=== PATIENT | female | born 1970 | race Caucasian/White ===

== ENCOUNTER 2024-08-31 18:08 | Emergency (ER) | payer OTHER, SELFPAY ==
[2024-08-31 18:21] VITALS: BP 138/88; PULSE 76; RESP 16; TEMP 36.5; O2SAT 97; BMI 27.5
--- NOTE | 2024-08-31 19:11 | CRLHL7_ITS ---
For Patients: As a result of the Century Cures Act, medical imaging exams and procedure reports are released immediately into your electronic medical record. You may view this report before your referring provider. If you have questions, please contact your health care provider. INDICATION: Chest pain COMPARISON: None. TECHNIQUE: Two radiographic view(s) of the chest. FINDINGS: No pleural effusion. No pneumothorax. No definite focal pulmonary consolidation. Normal heart size. There are osseous degenerative changes. IMPRESSION: No acute thoracic findings. Dictated by Marv Pantoja MD @ 08/31/2024 8:07:49 PM (Electronically Signed)
--- NOTE | 2024-08-31 19:24 | ED_ITS ---
HPI - Chest Pain General Date Seen: 08/31/24 Chief Complaint: Chest Pain Stated Complaint: pressure in head, feeling generally unwell Time Seen by Provider: 08/31/24 18:58 Source: patient and family Mode of arrival: ambulatory Limitations: no limitations History of Present Illness HPI narrative: Patient is a very nice 54-year-old female was at a family gathering i.e. [facility], when developed chest pressure and some pressure in her head. She felt as though she might actually pass out associated with this. This was approximately 3 hours ago, the pressure in her head and chest have improved significantly since this. But she says it still feels as though she would almost was going to pass out at the time, she has never before had this feeling, denies any alcohol involved, drank normally today, and does not feel like she might be dehydrated she denies a fevers chills. There is no previous history of cardiac issues associated with her. There was however a family history of premature coronary disease in a grandmother. No history of hypercholesterolemia, hypertension, diabetes, she is a nonsmoker. Only medicine she takes is p.r.n. valtrex for cold sores complaint: chest pain and chest heaviness Onset (ago): hour(s) Timing of current episode: constant Prior episodes: No Onset: during rest Pain location: substernal and left chest Pain radiation: none Severity: moderate Quality: heaviness and fullness Relieving factors: remaining still and sitting upright Exacerbating factors: supine Associated symptoms: sense of impending doom Treatment prior to arrival: none Risk Factors Coronary artery disease risk factors: none Thoracic aortic dissection risk factors: none Related Data On Oral Contraceptives: No Home Medications ?Medication ?Instructions ?Recorded ?Confirmed valacyclovir 1 gram tablet 500 mg PO DAILY 08/31/24 08/31/24 (Valtrex) Allergies Allergy/AdvReac Type Severity Reaction Status Date / Time erythromycin base Allergy Mild Hives Verified 08/31/24 18:28 Penicillins Allergy Mild Hives Verified 08/31/24 18:28 Review of Systems Status of ROS Reports: 10 or more systems reviewed and unremarkable except as noted in History and below PFSH PFSH Social History Smoking Status: Never smoker Do you use any of these nicotine containing products: None Second hand tobacco smoke exposure: No How often do you have six or more drinks on one occasion: Never AUDIT-C Alcohol total score: 0 Non-prescribed substance use: denies use Exam Narrative Exam Narrative: Patient is speaking normally,no problem with slurring words, oriented x3. Head eyes ears nose and throat exam show equal pupils, no scleral icterus, extraocular muscles are normal, no facial droop, speech is normal, trachea normal and midline. Thyroid normal midline palpable not enlarged. Chest shows symmetrical rise bilaterally, normal auscultation with no wheezes, no increased work of breathing, no overt bruising or lesions seen, no tenderness is noted on auscultation. Heart sounds normal with no S3-S4 no murmurs clicks or gallops. Abdomen shows no obvious masses or hepatosplenomegaly, no organomegaly, bowel sounds are normal in all quadrants. No tenderness is noted also in all quadrants. Upper and lower extremities show normal power, normal range of motion, pulses are normal, sensations normal, fine motor movements are normal, pelvis is stable to rocking. Cervical spine shows normal range of motion, and palpably not tender. Thoracic spine shows normal range of motion, and palpably not tender, lumbar spine shows no tenderness to palpation percussion and is otherwise normal range of motion. Skin shows no rashes, petechiae or eccymosis. Const Vital Signs, click to edit/add: Vital Signs - 24 hr 08/31/24 18:21 08/31/24 19:54 08/31/24 19:54 Temperature 97.7 F 98.7 F Pulse Rate [Pulse Oximeter] 76 77 Respiratory Rate 16 18 Blood Pressure [Left Upper Arm] 138/88 135/87 Pulse Oximetry 97 97 97 Oxygen Delivery Method Room Air Room Air Documenting provider has reviewed patient's vital signs: yes Course Course ED Course: Patient has done well, she is currently both pain-free and headache free. Troponin negative x2 D-dimer negative, EKG is reassuring chest CT and chest x- ray and laboratory work all normal. I am not sure what happened, but I think she becomes into a low risk category caught following the heart score. I would recommend follow-up with primary care and consideration of a stress echo. Return here if increasing chest pain shortness of breath or other issues. She was comfortable this plan. Reevaluation(s) Time of Reevaluation #1: 21:11 Reevaluation #1: Patient is doing well, her initial troponin was negative follow-up troponin is pending. Her EKG looked normal her laboratory work was all reassuring including a negative D-dimer, her head CT did not show any acute findings in her chest x- ray was normal, I do not have a cause of her chest pain at the present time. But everything so far is very reassuring I told her and her parents this. Vital Signs Vital signs: Initial Vital Signs Temperature 97.7 F 08/31/24 18:21 Temperature Source Temporal Artery Scan 08/31/24 18:21 Pulse Rate 76 08/31/24 18:21 Respiratory Rate 16 08/31/24 18:21 Blood Pressure 138/88 08/31/24 18:21 Blood Pressure Mean 104 08/31/24 18:21 Blood Pressure Position Sitting 08/31/24 18:21 Pulse Oximetry 97 08/31/24 18:21 Oxygen Delivery Method Room Air 08/31/24 18:21 Vital Signs Temperature 97.7 F 08/31/24 18:21 Pulse Rate 76 08/31/24 18:21 Respiratory Rate 16 08/31/24 18:21 Blood Pressure 138/88 08/31/24 18:21 Pulse Oximetry 97 08/31/24 18:21 Oxygen Delivery Method Room Air 08/31/24 18:21 Temperature 98.7 F 08/31/24 19:54 Pulse Rate 77 08/31/24 19:54 Respiratory Rate 18 08/31/24 19:54 Blood Pressure 135/87 08/31/24 19:54 Pulse Oximetry 97 08/31/24 19:54 Oxygen Delivery Method Room Air 08/31/24 19:54 Medications Administered Medications: Discontinued Medications Generic Name Dose Route Start Last Admin Trade Name Freq PRN Reason Stop Dose Admin Aspirin 324 mg 08/31/24 19:11 08/31/24 19:51 Aspirin 81 Mg Tab.Chew PO 08/31/24 19:12 324 mg ONCE ONE Administration MDM - Chest Pain MDM Narrative Medical decision making narrative: During the evaluation of this patient I considered multiple differential diagnosis is. The life-threatening differential diagnosis include coronary disease/DC, pulmonary embolism, pneumothorax, pneumonia, and aortic dissection. Other differential diagnosis included but were not limited to pericarditis, myocarditis, chest wall pain, GERD, esophageal rupture, rib fracture contusion, pleurisy, as well as other etiologies. I discussed that we will do workup for her chest pain, and pressure in her head. I am happy that she is feeling better, her EKG is nonspecific at this point, she declined COVID testing but agreed to a all other measures. Medical Records Data Attestation: I reviewed the patient's medical records. Lab Data Attestation: I reviewed the patient's lab results. Labs: Lab Results 08/31/24 08/31/24 Range/Units 19:20 21:19 WBC 6.19 (4.50-11.00) K/uL RBC 4.16 (4.00-5.20) m/uL Hgb 13.6 (12.0-16.0) gm/dL Hct 39.7 (33.0-51.0) % MCV 95 (80-100) fL MCH 33 (26-34) pg MCHC 34 (32-36) gm/dL RDW Coeff of Zuly 11.6 (11.5-15.5) % Plt Count 275 (140-440) K/uL Neut % (Auto) 65.7 (42.0-72.0) % Lymph % (Auto) 23.3 (20-44) % [place] % (Auto) 9.4 (0.0-11.0) % Eos % (Auto) 1.1 (0.0-7.0) % Baso % (Auto) 0.5 (0.0-3.0) % Neut # (Auto) 4.07 (1.7-7.0) K/uL Lymph # (Auto) 1.44 (0.90-2.90) K/uL [place] # (Auto) 0.60 (0.00-0.90) K/UL Eos # (Auto) 0.07 (0.00-0.50) K/uL Baso # (Auto) 0.03 (0.00-0.30) K/uL Abs Immat Gran (auto) 0.00 (0.00-0.30) K/uL Imm/Tot Granulo (auto) 0.0 % D-Dimer Quant (PE/DVT) < 0.27 (0.00-0.50) ug/ml Sodium 135 (135-149) mmol/L Potassium 4.9 (3.6-5.1) mmol/L Chloride 106 (96-114) mmol/L Carbon Dioxide 24 (20-32) mmol/L Anion Gap 5 L (7-15) mEq/L BUN 18 (7-30) mg/dL Creatinine 0.6 (0.5-1.5) mg/dL Estimated Creat Clear 92.56 Estimated GFR 107 ml/min Glucose 98 (60-115) mg/dL Calcium 9.2 (8.4-10.6) mg/dL C-Reactive Protein < 0.5 L (0.5-1.0) mg/dL NT-Pro-B Natriuret Pep 247 pg/mL POC Troponin I 0.00 L 0.00 L (0.01-0.04) ng/ml Imaging Data Chest x-ray: Attestation: I have reviewed the pertinent imaging results. My impression: Chest x-ray shows no acute findings, head CT is otherwise normal. Radiologist's impression: [place] [address] Diagnostic Imaging Report Patient: Flores Blair MR#: [id number] : 1970 Acct:[id number] Loc: ED Service Date: 08/31/[address]: Ordering Physician: Bethel Sim M.D. Date of Service: 08/31/24 Procedure(s): CT head/brain wo con Accession Number(s): [id number] cc: Provider,Not a Local; Bethel Sim M.D.~ For Patients: As a result of the Cures Act, medical imaging exams and procedure reports are released immediately into your electronic medical record. You may view this report before your referring provider. If you have questions, please contact your health care provider. INDICATION: Headaches. TECHNIQUE: CT of the head without contrast. Coronal and sagittal reformats are included. COMPARISON: None. FINDINGS: No CT evidence of acute cortical infarct. No loss of marx white matter differentiation. No hyperdense vessels to suggest intracranial thrombus. No acute intracranial hemorrhage. No mass effect or midline shift. No hydrocephalus or extra-axial collections. White matter is within normal limits for age. No acute osseous abnormalities. Mastoid air cells and paranasal sinuses are clear. Normal soft tissues. IMPRESSION: IMPRESSION:1. No CT evidence of acute cortical infarct. No acute intracranial hemorrhage. No other acute intracranial findings. Please note that all CT scans at this facility use dose modulation, iterative reconstruction, and/or weight-based dosing when appropriate to reduce radiation dose to as low as reasonably achievable. Dictated by Familia Barnard MD @ 08/31/2024 9:01:24 PM (Electronically [address] [address] Diagnostic Imaging Report Patient: Flores Blair MR#: [id number] : 1970 Acct:[id number] Loc: ED Service Date: 08/31/[address]: Ordering Physician: Bethel Sim M.D. Date of Service: 08/31/24 Procedure(s): XR chest 2V Accession Number(s): [id number] cc: Bethel Sim M.D.~ For Patients: As a result of the Cures Act, medical imaging exams and procedure reports are released immediately into your electronic medical record. You may view this report before your referring provider. If you have questions, please contact your health care provider. INDICATION: Chest pain COMPARISON: None. TECHNIQUE: Two radiographic view(s) of the chest. FINDINGS: No pleural effusion. No pneumothorax. No definite focal pulmonary consolidation. Normal heart size. There are osseous degenerative changes. IMPRESSION: No acute thoracic findings. Dictated by Marv Pantoja MD @ 08/31/2024 8:07:49 PM (Electronically Signed) ECG Data Attestation: I personally reviewed and interpreted this ECG as follows: ECG interpretation date: 08/31/24 Prior ECG tracings: not available for review Interpretation: EKG shows normal sinus rhythm, with a ventricular rate of [address] wave flattening noted precordially, in inferiorly. No old EKGs to compare Discharge Plan Discharge Clinical Impression: Chest pain, Headache Patient Disposition: Home w/ Parent or Adult Condition: Stable Instructions: Chest Pain (ED), Acute Headache (DC) Additional Instructions: Home, rest, see how it goes, increasing chest pain shortness of breath passing out, all would be reasons to come back to the emergency room, I do recommend you follow-up with your primary care physician in the next 5-7 days, consideration of a stress test, likely a stress echo should be considered. Activity Level: Light activity Discharge Diet: Regular Prescriptions: No Action valacyclovir [Valtrex] 1 gram tablet 500 mg PO DAILY Follow Up/Referrals: Provider,Not a Local [Primary Care Provider] - Stand Alone Forms: [employer] Info Instructions
[2024-08-31 19:35] LABS: Basophils Absolute Auto 0.03 K/uL (0.00-0.30); Basophils Percent Auto 0.5 % (0.0-3.0); Eosinophils Absolute Auto 0.07 K/uL (0.00-0.50); Eosinophils Percent Auto 1.1 % (0.0-7.0); Hematocrit 39.7 % (33.0-51.0); Hemoglobin* 13.6 gm/dL (12.0-16.0); Lymphocytes Absolute Auto 1.44 K/uL (0.90-2.90); Lymphocytes Percent Auto 23.3 % (20-44); Mean Corpuscular HGB Conc 34 gm/dL (32-36); Mean Corpuscular Hemoglobin 33 pg (26-34); Mean Corpuscular Volume 95 fL (80-100); Monocytes Percent Auto 9.4 % (0.0-11.0); Neutrophils Absolute Auto 4.07 K/uL (1.7-7.0); Neutrophils Percent Auto 65.7 % (42.0-72.0); Platelet Count* 275 K/uL (140-440); RDW Coefficient of Variation % 11.6 % (11.5-15.5); Red Blood Count 4.16 m/uL (4.00-5.20); White Blood Count* 6.19 K/uL (4.50-11.00)
[2024-08-31 19:40] LABS: Slide Review Reflex No
[2024-08-31 19:51] LABS: Chloride* 106 mmol/L (96-114); Potassium* 4.9 mmol/L (3.6-5.1); Sodium* 135 mmol/L (135-149)
[2024-08-31] MEDS: ASPIRIN 81 MG TAB.CHEW 324 MG PO (19:51)
[2024-08-31 19:54] VITALS: BP 135/87; PULSE 77; RESP 18; TEMP 37.1; O2SAT 97
[2024-08-31 19:54] LABS: Creatinine* 0.6 mg/dL (0.5-1.5); Est. Creatinine Clearance* 92.56; Estimated Glomerular Filt Rate 107 ml/min
[2024-08-31 19:55] LABS: Anion Gap 5 mEq/L (7-15); Blood Urea Nitrogen* 18 mg/dL (7-30); Calcium* 9.2 mg/dL (8.4-10.6); Carbon Dioxide* 24 mmol/L (20-32); Glucose* 98 mg/dL (60-115)
[2024-08-31 20:01] LABS: C Reactive Protein* < 0.5 mg/dL (0.5-1.0)
--- NOTE | 2024-08-31 20:21 | CRLHL7_ITS ---
For Patients: As a result of the Century Cures Act, medical imaging exams and procedure reports are released immediately into your electronic medical record. You may view this report before your referring provider. If you have questions, please contact your health care provider. INDICATION: Headaches. TECHNIQUE: CT of the head without contrast. Coronal and sagittal reformats are included. COMPARISON: None. FINDINGS: No CT evidence of acute cortical infarct. No loss of marx white matter differentiation. No hyperdense vessels to suggest intracranial thrombus. No acute intracranial hemorrhage. No mass effect or midline shift. No hydrocephalus or extra-axial collections. White matter is within normal limits for age. No acute osseous abnormalities. Mastoid air cells and paranasal sinuses are clear. Normal soft tissues. IMPRESSION: IMPRESSION:1. No CT evidence of acute cortical infarct. No acute intracranial hemorrhage. No other acute intracranial findings. Please note that all CT scans at this facility use dose modulation, iterative reconstruction, and/or weight-based dosing when appropriate to reduce radiation dose to as low as reasonably achievable. Dictated by Familia Barnard MD @ 08/31/2024 9:01:24 PM (Electronically Signed)
[2024-08-31 20:22] LABS: NT Pro B Type NatriureticPept* 247 pg/mL
[2024-08-31 20:45] LABS: D Dimer Quantitative* < 0.27 ug/ml (0.00-0.50)
== END 2024-08-31 22:32 | disposition home or self-care (01) ==
PROVIDERS: Emergency Provider Family Medicine
DX: R07.9 Chest pain, unspecified (principal); R51.9 Headache, unspecified
CPT/HCPCS: 36415; 70450; 71046; 80048; 83880; 84484; 85025; 85379; 86140; 87631; 93005; 94761; 99284; 99285; A9270